=== PATIENT | female | born 1950 | race Caucasian/White ===

== ENCOUNTER 2017-03-03 09:54 | Day surgery (SDC) | payer MEDICARE ==
[2017-02-28 14:13] VITALS: BMI 34.3
[~2017-03-03 09:54] MED LIST: LACTATED RINGERS 1,000 ML IV SCH; LIDOCAINE 1% 20 ML VIAL (10MG/ML) FOR IV START INTRADERMA PRN
[2017-03-03 10:45] VITALS: TEMP 97.9
[2017-03-03 11:10] LABS: Glucose,Whole Blood 104 mg/dL (75-99)
[2017-03-03] MEDS ORDERED: PROPOFOL 10 MG/ML 20 ML VIAL IV ONE (11:22)
[2017-03-03] MEDS ORDERED: LIDOCAINE 1% INJ 10MG/ML (20 ML MDV) ONE (11:22)
[2017-03-03 11:53] VITALS: RESP 16
--- NOTE | 2017-03-03 11:54 | P.PCN ---
Date of Procedure: 03/03/17 Preoperative Diagnosis: Postoperative Diagnosis: Procedure(s) Performed: BRIEF HISTORY: Patient is a 66-year-old pleasant white female, scheduled for an elective colonoscopy as a part of screening for colorectal neoplasia. PROCEDURE PERFORMED: Colonoscopy with biopsy. PREOPERATIVE DIAGNOSIS: Screening for colon cancer. IV sedation per Anesthesia. PROCEDURE: After informed consent was obtained, the patient, was brought into the endoscopy unit. IV sedation was administered by Anesthesia under continuous monitoring. Digital rectal examination was normal. Initially the Olympus CF- 160 flexible video colonoscope was then inserted in the rectum, gradually advanced into the cecum without any difficulty. Careful examination was performed as the scope was gradually being withdrawn. Ileocecal valve and the appendiceal orifice were visualized and appeared normal. Prep was excellent. Mucosa of the cecum, ascending colon, appeared normal. Hematologic transverse colon there was a 5 mm polyp that was removed by biopsy. Rest of the transverse colon, descending colon, sigmoid colon, and rectum appeared normal. Scattered sigmoid diverticulosis seen. Retroflexion was performed in the rectum and no lesions were seen. The patient tolerated the procedure well. IMPRESSION: 5 mm transverse colon polyp status post removal by biopsy. Scattered sigmoid diverticulosis RECOMMENDATIONS: Findings of this examination were discussed with the patient as well as her family. She was advised to follow with the biopsy result. If the biopsy shows a tubular adenoma she can have a repeat colonoscopy in 5 years. Implants: Indications for Procedure: Operative Findings: Description of Procedure:
[2017-03-03 12:30] VITALS: BP 141/82; PULSE 77
== END 2017-03-03 12:31 | disposition home or self-care (01) ==
LOC: ORWHC2ENDO 09:54
PROVIDERS: ATTEND Internal Medicine Gastroenterology
DX: Z12.11 Encounter for screening for malignant neoplasm of colon (principal); K63.5 Polyp of colon; K57.30 Diverticulosis of large intestine without perforation or abscess without bleeding; I10 Essential (primary) hypertension; J45.909 Unspecified asthma, uncomplicated; E11.9 Type 2 diabetes mellitus without complications; Z79.84 Long term (current) use of oral hypoglycemic drugs; E07.9 Disorder of thyroid, unspecified; Z79.899 Other long term (current) drug therapy; Z88.8 Allergy status to other drugs, medicaments and biological substances
CPT/HCPCS: 88305; 45380; J2001; J2704

== ENCOUNTER → 2017-12-09 | Outpatient (CLI) | payer MEDICARE ==
--- NOTE | 2017-12-13 07:10 | MM ---
Reason for exam: screening (asymptomatic). Last mammogram was performed 1 year and 6 months ago. History: Patient is postmenopausal. Physical Findings: A clinical breast exam by your physician is recommended on an annual basis and results should be correlated with mammographic findings. MG Screening Mammo w CAD Bilateral CC and MLO view(s) were taken. Prior study comparison: June 22, 2016, bilateral MG 3d screening mammo w/cad. March 29, 2015, bilateral MG screening mammo w CAD. The breast tissue is heterogeneously dense. This may lower the sensitivity of mammography. Finding: There are typically benign dystrophic, round calcifications in both breasts. There is no discrete abnormality. ASSESSMENT: Benign, BI-RAD 2 RECOMMENDATION: Routine screening mammogram of both breasts in 1 year.
== END | disposition home or self-care (01) ==
LOC: RADMAMWWP 10:47
PROVIDERS: ATTEND Obstetrics & Gynecology
DX: Z12.31 Encounter for screening mammogram for malignant neoplasm of breast (principal)
CPT/HCPCS: 77067

== ENCOUNTER → 2020-07-14 | Outpatient (CLI) | payer MEDICARE ==
--- NOTE | 2020-07-14 16:36 | BD ---
EXAMINATION TYPE: Axial Bone Density DATE OF EXAM: 07/14/2020 COMPARISON: 12.26.2018 CLINICAL HISTORY: 70 YR OLD FEMALE....ICD-10 CODE: Z78.0 POST MENOPAUSAL Height: 59 Weight: 178 FRAX RISK QUESTIONS: Secondary Osteoporosis: YES 1. Type 1 Diabetes: YES RISK FACTORS HISTORY OF: Family History of Osteoporosis: YES, MOTHER AND SISTER...NO HIP FX Postmenopausal woman: YES, AT AGE 50 Lost more than 2 inches in height since high school: YES Hyperparathyroidism: NO Adrenal Insufficiency: NO MEDICATIONS: Thyroid Medications: YES, SYNTHROID, FOR ABOUT 20 YRS Additional Medications: CALCIUM AND VIT D, TRULICITY, BP MEDS, STATIN FOR CHOLESTEROL, METFORMIN, , Additional History: HYPERTENSION, CHOLESTEROL, DIABETIC, EXAM MEASUREMENTS: Bone mineral densitometry was performed using the [employer] System. Bone mineral density as measured about the Lumbar spine is: ----- L1-L4(G/cm2): 1.912 T Score Values are as follows: ----- L1: 5.0 ----- L2: 4.5 ----- L3: 7.1 ----- L4: 7.4 ----- L1-L4: 6.1 Bone mineral density has: Increased 2.8% since study of: 12.26.2018 Bone mineral density about the R hip (g/cm2): 1.316 Bone mineral density about the L hip (g/cm2): 1.254 T Score values are as follows: -----R Neck: 2.5 -----L Neck: 1.9 -----R Total: 2.4 -----L Total: 2.0 Bone mineral density has: Increased 0.2% since study of: 12.26.2018 FRAX%s: THERE IS A 5.8% CHANCE FOR A MAJOR OSTEOPOROTIC FX AND A 0.1% FOR HIP......PROBABILITY FOR FX IN 10 YRS TIME IMPRESSION: Normal (Values between +1 and -1 indicate normal bone mass). Consider repeating this study in 5 year s or sooner if there is some new clinical indication. NOTE: T-SCORE=SD OF THE YOUNG ADULT MEAN.
--- NOTE | 2020-07-16 09:43 | MM ---
Reason for exam: screening (asymptomatic). Last mammogram was performed 1 year and 7 months ago. History: Patient is postmenopausal. Physical Findings: A clinical breast exam by your physician is recommended on an annual basis and results should be correlated with mammographic findings. MG 3D Screening Mammo W/Cad Bilateral CC and MLO view(s) were taken. Prior study comparison: December 26, 2018, bilateral MG 3d screening mammo w/cad. December 09, 2017, bilateral MG screening mammo w CAD. There are scattered fibroglandular densities. Stable faint grouped calcifications lateral left breast. No significant changes when compared with prior studies. ASSESSMENT: Benign, BI-RAD 2 RECOMMENDATION: Routine screening mammogram of both breasts in 1 year.
== END | disposition home or self-care (01) ==
LOC: RADMAMWWP 10:53
PROVIDERS: ATTEND Obstetrics & Gynecology
DX: Z12.31 Encounter for screening mammogram for malignant neoplasm of breast (principal); Z13.820 Encounter for screening for osteoporosis; Z78.0 Asymptomatic menopausal state
CPT/HCPCS: 77063; 77067; 77080

== ENCOUNTER → 2021-08-24 | Outpatient (CLI) | payer MEDICARE ==
--- NOTE | 2021-08-26 14:07 | MM ---
Reason for exam: screening (asymptomatic). Last mammogram was performed 1 year and 1 month ago. History: Patient is postmenopausal. Physical Findings: A clinical breast exam by your physician is recommended on an annual basis and results should be correlated with mammographic findings. MG 3D Screening Mammo W/Cad Bilateral CC and MLO view(s) were taken. Prior study comparison: July 14, 2020, bilateral MG 3d screening mammo w/cad. December 26, 2018, bilateral MG 3d screening mammo w/cad. There are scattered fibroglandular densities. No significant changes when compared with prior studies. ASSESSMENT: Benign, BI-RAD 2 RECOMMENDATION: Routine screening mammogram of both breasts in 1 year.
== END | disposition home or self-care (01) ==
LOC: RADMAMWWP 16:01
PROVIDERS: ATTEND Obstetrics & Gynecology
DX: Z12.31 Encounter for screening mammogram for malignant neoplasm of breast (principal); Z78.0 Asymptomatic menopausal state
CPT/HCPCS: 77063; 77067

== ENCOUNTER → 2023-01-05 | Outpatient (CLI) | payer MEDICARE ==
--- NOTE | 2023-01-05 13:10 | BD ---
EXAMINATION TYPE: Axial Bone Density DATE OF EXAM: 01/05/2023 CLINICAL HISTORY: 72 years old Female. ICD-10 CODE: M85.88 OSTEOPENIA Height: 59 Weight: 169.2 FRAX RISK QUESTIONS: Alcohol (3 or more units per day): no Family History (Parent hip fracture): no Glucocorticoids (More than 3mos): no History of Fracture in Adulthood: Yes Secondary Osteoporosis: 1. Type 1 Diabetes: no 2. Hyperthyroidism: no 3. Menopause before 45: no 4. Malnutrition: no 5. Chronic liver disease: no Rheumatoid Arthritis: no Current Tobacco Use: no RISK FACTORS HISTORY OF: Hip Fracture (Right/Left): no Spine Fracture: no History of Wrist Fracture: no Surgery to Spine/Hip(right/left)/Wrist (right/left): no Family History of Osteoporosis: mother Active: no Diet low in dairy products/other sources of calcium: yes Postmenopausal woman: yes Take estrogen and/or progesterone medications: no Lost more than 2 inches in height since high school: yes Frequent falls: yes Poor Health: yes Hyperparathyroidism: no Adrenal Insufficiency: no MEDICATIONS: Prednisone or other steroids: no Thyroid Medications: yes Which medication: Levothyroxin How Long: Past 6 years Osteoporosis Medications: no Additional Medications: Cholesterol Meds, BP Meds, Insulin Additional History: EXAM MEASUREMENTS: Bone mineral densitometry was performed using the [employer] System. Bone mineral density as measured about the Lumbar spine is: ----- L1-L4(G/cm2): 1.653 T Score Values are as follows: ----- L1: 2.5 ----- L2: 3.9 ----- L3: 5.2 ----- L4: 3.8 ----- L1-L4: 3.9 Z Score Values are as follows: ----- L1: 3.8 ----- L2: 5.2 ----- L3: 6.5 ----- L4: 5.2 ----- L1-L4: 5.3 Bone mineral density has: decreased -13.5 % since study of: 07/14/2020 Bone mineral density about the R hip (g/cm2): 1.223 Bone mineral density about the L hip (g/cm2): 1.174 T Score values are as follows: -----R Neck: 0.6 -----L Neck: 0.7 -----R Total: 1.7 -----L Total: 1.3 Z Score values are as follows: -----R Neck: 2.2 -----L Neck: 2.2 -----R Total: 3.0 -----L Total: 2.6 Bone mineral density has: decreased -6.7 % since study of: 07/14/2020 FRAX%s: The graph provided illustrates a 6.0% chance for a major osteoporotic fx and a 0.2% chance fo r the hips probability for fx in 10 years time. IMPRESSION: Normal (Values between +1 and -1 indicate normal bone mass). Consider repeating this study in 5 year s or sooner if there is some new clinical indication. NOTE: T-SCORE=SD OF THE YOUNG ADULT MEAN.
--- NOTE | 2023-01-06 08:27 | MM ---
Reason for Exam: Screening (asymptomatic). Last mammogram was performed 1 year(s) and 5 month(s) ago. Patient History: Menarche at age 13. First Full-Term at age 29. Postmenopausal. Risk Values: Deann 5 year model risk: 2.0%. NCI Lifetime model risk: 5.1%. Prior Study Comparison: 12/26/2018 Bilateral Screening Mammogram, [facility]. 07/14/2020 Bilateral Screening Mammogram, [facility]. 08/24/2021 Bilateral Screening Mammogram, [facility]. Tissue Density: The breast tissue is almost entirely fat. Findings: Analyzed By CAD. There is no suspicious group of microcalcifications or new suspicious mass in either breast. Overall Assessment: Negative, BI-RAD 1 Management: Screening Mammogram of both breasts in [address] [facility] will attempt to contact patient to return for supplemental views and ultrasound if indicated. Patient should continue monthly self-breast exams. A clinical breast exam by your physician is recommended on an annual basis. This exam should not preclude additional follow-up of suspicious palpable abnormalities. Note on Deann scores and lifetime risk: 1. A Deann score greater than 3% is considered moderate risk. If this is the case, consider specialist referral to assess eligibility for a risk reducing agent. 2. If overall lifetime risk for the development of breast cancer is 20% or higher, the patient may qualify for future screening with alternating mammogram and breast MRI. Electronically signed and approved by: Michele Carson DO
== END | disposition home or self-care (01) ==
LOC: RADMAMWWP 10:14
PROVIDERS: ATTEND Obstetrics & Gynecology
DX: Z12.31 Encounter for screening mammogram for malignant neoplasm of breast (principal); M85.88 Other specified disorders of bone density and structure, other site; Z78.0 Asymptomatic menopausal state
CPT/HCPCS: 77063; 77067; 77080

== ENCOUNTER → 2023-09-01 | Outpatient (CLI) | payer MEDICARE ==
[2023-09-01 18:58] LABS: T4, Free (Free Thyroxine) 1.52 ng/dL (0.80-1.80)
--- NOTE | 2023-09-02 08:22 | XR ---
EXAMINATION TYPE: XR elbow complete LT, XR forearm LT, XR humerus LT, XR shoulder complete LT DATE OF EXAM: 09/01/2023 1:05 PM CLINICAL INDICATION:Female, 73 years old with history of W19.XXXA UNSPECIFIED FALL, INITIAL ENCOUNTER ; [facility] COMPARISON: None TECHNIQUE: XR elbow complete LT, XR forearm LT, XR humerus LT, XR shoulder complete LT; elbow was examined in AP, lateral, and oblique projections. The forearm and humerus was evaluated in frontal and lateral views. The shoulder was evaluated in frontal lateral and scapular Y views. FINDINGS: There is degeneration changes of the acromioclavicular joint with osteophyte formation of t he clavicle and acromion. Mild osteophyte of the glenoid. Enthesophyte formation of the triceps inser tion on the olecranon process. No evidence of fracture or dislocation. Soft tissues are grossly unrem arkable. IMPRESSION: 1. No evidence of acute fracture. 2. Mild degeneration changes of the joints of the upper extremity.
== END | disposition home or self-care (01) ==
LOC: RADXRMAIN 11:34
PROVIDERS: ATTEND Internal Medicine
DX: E03.9 Hypothyroidism, unspecified (principal); W19.XXXA Unspecified fall, initial encounter
CPT/HCPCS: 36415; 84439; 84443

== ENCOUNTER → 2023-09-08 | Outpatient (CLI) | payer MEDICARE ==
--- NOTE | 2023-09-08 16:37 | US ---
EXAMINATION TYPE: US venous doppler duplex LE - LEFT DATE OF EXAM: 09/08/2023 4:14 PM COMPARISON: NONE CLINICAL INDICATION: Female, 73 years old with history of M79.605 PAIN IN LEFT LEG; Pt states left le g pain SIDE PERFORMED: Left TECHNIQUE: The lower extremity deep venous system is examined utilizing real time linear array sonog gamaliel with graded compression, doppler sonography and color-flow sonography. VESSELS IMAGED: Common Femoral Vein Deep Femoral Vein Greater Saphenous Vein * Femoral Vein Popliteal Vein Small Saphenous Vein * Proximal Calf Veins (* superficial vessels) DESCRIPTION: Grayscale, color doppler, spectral doppler imaging performed of the deep veins of the left lower extr emity. Examination appears negative. Only color flow obtained within veins; patient was unable to eliud erate compressions down entire leg Results called to Shelia at 's office at time of exam IMPRESSION: Negative DVT, left lower extremity as discussed.
== END | disposition home or self-care (01) ==
LOC: RADUSWWP 15:55
PROVIDERS: ATTEND Internal Medicine
DX: M79.605 Pain in left leg (principal)

== ENCOUNTER → 2023-11-11 | Outpatient (CLI) | payer MEDICARE | END | disposition home or self-care (01) | LOC: LABWHC1 10:03 | PROVIDERS: ATTEND Internal Medicine | DX: R63.4 Abnormal weight loss (principal) | CPT/HCPCS: 36415; 82272 ==

== ENCOUNTER → 2024-04-13 | Outpatient (CLI) | payer MEDICARE ==
--- NOTE | 2024-04-16 09:02 | MM ---
Reason for Exam: Screening (asymptomatic). Last mammogram was performed 1 year(s) and 3 month(s) ago. Patient History: Menarche at age 13. First Full-Term at age 29. Postmenopausal. Risk Values: Deann 5 year model risk: 2.0%. NCI Lifetime model risk: 4.8%. Prior Study Comparison: 07/14/2020 Bilateral Screening Mammogram, [facility]. 08/24/2021 Bilateral Screening Mammogram, [facility]. 01/05/2023 Bilateral MG 3D screening mammo w/cad, [facility]. Tissue Density: The breasts are heterogeneously dense, which may obscure small masses. Findings: Analyzed By CAD. There is no suspicious group of microcalcifications or new suspicious mass in either breast. Benign appearing calcifications. Overall Assessment: Benign, BI-RAD 2 Management: Screening Mammogram of both breasts in 1 year. . Patient should continue monthly self-breast exams. A clinical breast exam by your physician is recommended on an annual basis. This exam should not preclude additional follow-up of suspicious palpable abnormalities. Note on Deann scores and lifetime risk: 1. A Deann score greater than 3% is considered moderate risk. If this is the case, consider specialist referral to assess eligibility for a risk reducing agent. 2. If overall lifetime risk for the development of breast cancer is 20% or higher, the patient may qualify for future screening with alternating mammogram and breast MRI. [facility], , 04/16/2024 8:58 AM. Electronically signed and approved by: Matthew Perkins M.D. Radiologis
--- NOTE | 2024-04-20 10:16 | US ---
EXAMINATION TYPE: US thyroid st tissue head/neck DATE OF EXAM: 04/13/2024 COMPARISON: NONE CLINICAL INDICATION: Female, 73 years old with history of E03.9 HYPOTHYROID; Hypothyroid TECHNIQUE: Grayscale and color Doppler imaging of the thyroid gland. FINDINGS: GLAND SIZE: Right Lobe: 2.1 x 1.0 x 0.9 cm Overall Parenchyma: heterogeneous Left Lobe: 2.4 x 0.8 x 0.9 cm Overall Parenchyma: heterogeneous Isthmus Thickness: 0.2 cm NODULES RIGHT: # of nodules measured on right: 0 LEFT: # of nodules measured on left: 0 ISTHMUS: # of nodules measured in the isthmus: 0 Bilateral neck scanned, no evidence of lymphadenopathy. Bilateral thyroid small and heterogeneous. IMPRESSION: No nodularity present. Thyroid lobes are diminutive in size and heterogenous. 2017 ACR TI-RADS LEVEL: *Highest TI-RADS level nodule reported [email or web address] [facility], , 04/20/2024 10:14 AM
== END | disposition home or self-care (01) ==
LOC: RADUSWWP 14:09
PROVIDERS: ATTEND Internal Medicine
CPT/HCPCS: 76536; 77063; 77067